=== PATIENT | male | born 1965 | race Two or more races ===

== ENCOUNTER 2025-01-31 15:14 | Inpatient (IN) | payer OTHER ==
[2025-01-31 16:09] VITALS: BMI 26.3
[2025-01-31] MEDS ORDERED: BENZOCAINE/MENTHOL (CHLORASEPTIC ) LOZENGE MM PRN (17:15)
[2025-01-31] MEDS ORDERED: NALOXONE (NARCAN) HCL 4 MG/0.1 ML SPRAY NS PRN (17:15)
[2025-01-31] MEDS ORDERED: POLYETHYLENE GLYCOL (HEALTHYLAX) 3350 17 GM PACKET PO PRN (17:15)
[2025-01-31] MEDS ORDERED: LOPERAMIDE HCL 2 MG CAPSULE PO PRN (17:15)
[2025-01-31] MEDS ORDERED: BISMUTH SUBSALICYLATE 524 MG/30 ML PO PRN (17:15)
[2025-01-31] MEDS ORDERED: ONDANSETRON *ODT* 4 MG TABLET SL PRN (17:15)
[2025-01-31] MEDS ORDERED: MAG HYDROX/AL HYDROX/SIMETH 30 ML UNIT-DOSE CUP PO PRN (17:15)
[2025-01-31] MEDS ORDERED: MAGNESIUM HYDROX 2400MG/30ML ORAL SUSPENSION 30 ML CUP PO PRN (17:15)
[2025-01-31] MEDS ORDERED: guaiFENesin 600 MG TABLET.ER (FP) PO PRN (17:15)
[2025-01-31] MEDS ORDERED: IBUPROFEN 400 MG TABLET (FP) PO PRN (17:15)
[2025-01-31] MEDS ORDERED: BENZONATATE 200 MG CAPSULE PO PRN (17:15)
[2025-01-31] MEDS: METHOCARBAMOL 500 MG TABLET PO PRN (19:31)
[2025-01-31] MEDS: IBUPROFEN 600 MG TABLET (FP) PO PRN (19:31)
[2025-01-31] MEDS: hydrOXYzine PAMOATE 25 MG CAPSULE (FP) PO PRN (19:31)
[2025-01-31] MEDS: DICYCLOMINE HCL 10 MG CAPSULE PO PRN (19:31)
[2025-01-31] MEDS: THIAMINE 100 MG TABLET PO SCH (22:35)
[2025-01-31] MEDS: MELATONIN 5 MG TABLETS PO SCH (22:35)
[2025-02-01 09:40] LABS: CHLORIDE 111 mmol/L (98-107); POTASSIUM 3.9 mmol/L (3.5-5.1); SODIUM 144 mmol/L (136-145)
[2025-02-01 09:42] LABS: CALCIUM 9.4 mg/dL (8.5-10.1)
[2025-02-01 09:43] LABS: ALBUMIN 3.1 g/dl (3.4-5.0); ANION GAP 3 mmol/L (4-13); CO2 30 mmol/L (21-32)
[2025-02-01 09:45] LABS: BLOOD UREA NITROGEN 18.6 mg/dL (7-18); GLUCOSE,RANDOM 136 mg/dL (74-106)
[2025-02-01 09:46] LABS: SGOT/AST 13 U/L (15-37); SGPT/ALT 19 U/L (13-61)
[2025-02-01 09:47] LABS: BILIRUBIN,TOTAL 0.4 mg/dL (0.2-1)
[2025-02-01 09:48] LABS: TOT PROT 5.8 g/dl (6.4-8.2)
[2025-02-01 09:49] LABS: ALK PHOS 87 U/L (45-117)
[2025-02-01 09:50] LABS: HEMATOCRIT 23.7 % (40.1-51.0); HEMOGLOBIN 7.8 g/dL (13.7-17.5); MCHC 32.9 g/dl (32.3-36.5); MEAN CELL VOLUME 94.8 fl (79.0-92.2); MEAN PLT VOLUME 9.8 fl (9.4-12.4); PLATELET COUNT 205 x10^3/uL (163-337); RDW 13.2 % (12.2-16.1)
[2025-02-01] MEDS: PRENATAL VITAMINS W/ FOLIC ACID TABLET (FP) PO SCH (10:11)
[2025-02-01] MEDS: PANTOPRAZOLE 40 MG TABLET PO SCH (11:34)
[2025-02-01] MEDS: BICTEGRAV/EMTRICIT/TENOFOV (BIKTARVY) 50-200-25 MG TABLET PO SCH (11:34)
[2025-02-01] MEDS: PNEUMOC 20-VAL CONJ-DIP CRM/PF 0.5 ML SYRINGE IM ONE (11:37)
[2025-02-01] MEDS: DULoxetine HCL 30 MG CAPSULE.DR PO SCH (11:59)
[2025-02-01] MEDS ORDERED: chlordiazePOXIDE HCL 25 MG CAPSULE PO PRN (13:57)
[2025-02-01] MEDS: chlordiazePOXIDE HCL 25 MG CAPSULE PO SCH (17:10)
[2025-02-01] MEDS: ATORVASTATIN CA 10 MG TABLET (FP) PO SCH (22:09)
[2025-02-02] MEDS: chlordiazePOXIDE HCL 25 MG CAPSULE PO SCH (05:41)
[2025-02-02] MEDS: ACETAMINOPHEN 325 MG TABLET (FP) PO PRN (17:37)
[2025-02-02] MEDS: LIDOCAINE PATCH REMOVAL MC SCH (22:16)
[2025-02-02] MEDS: METHYL SALICYLATE/MENTHOL 30 GM TUBE TP SCH (22:16)
[2025-02-03] MEDS: chlordiazePOXIDE HCL 10 MG CAPSULE PO SCH (05:46)
[2025-02-03] MEDS: LIDOCAINE 5% TOPICAL PATCH TP SCH (10:46)
[2025-02-04] MEDS: chlordiazePOXIDE HCL 10 MG CAPSULE PO SCH (06:00)
[2025-02-04] MEDS: chlordiazePOXIDE HCL 10 MG CAPSULE PO PRN (17:29)
[2025-02-05] MEDS: chlordiazePOXIDE HCL 10 MG CAPSULE PO ONE (05:39)
[2025-02-05] MEDS: BICTEGRAV/EMTRICIT/TENOFOV (BIKTARVY) 50-200-25 MG TABLET PO SCH (07:08)
[2025-02-05 10:07] VITALS: BP 130/63; PULSE 97; RESP 16; TEMP 97.7
== END 2025-02-05 12:10 | disposition other institution (70) | DRG 897 ==
LOC: YASAS 15:14 → Y6N 17:24
PROVIDERS: ADMIT Family Medicine; ATTEND Family Medicine
PROC: HZ2ZZZZ Detoxification Services for Substance Abuse Treatment (ICD-10-PCS; principal; 2025-01-31)
DX: F10.230 Alcohol dependence with withdrawal, uncomplicated (principal); F11.20 Opioid dependence, uncomplicated; F14.20 Cocaine dependence, uncomplicated; F17.210 Nicotine dependence, cigarettes, uncomplicated; F19.24 Other psychoactive substance dependence with psychoactive substance-induced mood disorder; F39 Unspecified mood [affective] disorder; F43.10 Post-traumatic stress disorder, unspecified; Z21 Asymptomatic human immunodeficiency virus [HIV] infection status; E78.5 Hyperlipidemia, unspecified; J44.9 Chronic obstructive pulmonary disease, unspecified; M19.90 Unspecified osteoarthritis, unspecified site; M54.50 Low back pain, unspecified; G89.29 Other chronic pain; Z99.89 Dependence on other enabling machines and devices
CPT/HCPCS: 36415; 80053; 80305; 80307; 85027; 86780; 90677; 93005; 93010